=== PATIENT | female | born 1955 | race Caucasian/White ===

== ENCOUNTER 2021-01-19 02:51 | Outpatient (CLI) | payer BC, SELFPAY ==
[2021-01-19 11:21] LABS: Source Nasal/Nares
[2021-01-19 19:29] LABS: COVID-19 PCR Negative (Negative)
== END 2021-01-19 02:52 | disposition home or self-care (01) ==
LOC: LBO 02:51
PROVIDERS: Visit Provider Ophthalmology
DX: Z20.822 Contact with and (suspected) exposure to COVID-19 (principal); Z01.818 Encounter for other preprocedural examination
CPT/HCPCS: 87635

== ENCOUNTER 2021-01-21 07:02 | Day surgery (SDC) | payer BC, SELFPAY ==
--- NOTE | 2021-01-21 06:59 | W.ANESPRE ---
General Info Date of Service Date Performed: 01/21/21 Height: 5 ft 1 in Weight: 74.843 kg Body Mass Index (BMI): 31.1 Surgical Procedure: Operation Date: 01/21/21 08:40 Proposed Procedures Side Surgeon p Cataract Extraction with IOL Implant Bijan Alexandre MD Meds Allergies and Home Medications Allergies Allergy/AdvReac Type Severity Reaction Status Date / Time No Known Allergies Allergy Verified 01/21/21 07:18 Home Medication Medication Instructions Recorded atorvastatin 20 mg PO DAILY 01/19/21 calcium carbonate mg PO DAILY 01/19/21 duloxetine 60 mg PO DAILY 01/19/21 ergocalciferol (vitamin D2) 1,250 mcg PO DIRECTED 01/19/21 ferrous gluconate mg PO DAILY 01/19/21 omega-3 fatty acids [Fish Oil] 1 cap PO DAILY 01/19/21 Current Visit Medications: Current Medications Generic Name Dose Route Start Last Admin Trade Name Freq PRN Reason Stop Dose Admin Acetaminophen 1,000 mg 01/21/21 06:00 Acetaminophen 500 Mg Tab PO Q4H PRN PRN Miscellaneous Medication 0 ml 01/21/21 06:00 Prednisolone 1%, Moxifloxacin 0.5%, Nepafenac 0.1% 5ml Btl OS DIRECTED [facility] Miscellaneous Medication 0 ml 01/21/21 06:00 Tropicam./Phenyleph. 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 cataract of left eye H25.042 Nuclear sclerotic cataract of left eye H25.12 Medical History Medical History Bilateral cataracts Depression with anxiety GERD (gastroesophageal reflux disease) Hypercholesteremia Tobacco Smoking/Tobacco Use Status: Former Tobacco Use Alcohol Alcohol Intake: current Alcohol intake frequency: a few times a week Alcohol type: wine Substance Use Substance use: Never Substance use type: does not use Vital Signs and Lab Results Lab Results Blood Type / Crossmatch: No Data to Display Complete Blood Count: No Data to Display Complete Metabolic Panel: No Data to Display Liver Function Panel: No Data to Display Coagulation Panel: No Data to Display Cardiac Panel: No Data to Display Arterial Blood Gas: No Data to Display Venous Blood Gas: No Data to Display Pancreas Panel: No Data to Display Thyroid Panel: No Data to Display Infectious Disease: Coronavirus (COVID-19)(PCR) Negative (Negative) 01/19/21 10:13 01/19/21 Coronavirus 2019 Source Nasal/Nares 01/19/21 10:13 01/19/21 Blood Cultures: No Data to Display Toxicology Panel: No Data to Display Anesthesia Assessment and Plan Anesthesia History Personal History: No History of Anesthesia Complications Family History: No Family History of Anesthesia Complications Exercise Tolerance Exercise Tolerance: Metabolic Equivalents>4 Pertinent Negatives Pertinent Negatives: No Symptoms of GERD, No Major Cardiovascular Symptoms or Complaints, No Major Pulmonary Symptoms or Complaints and No History of CVA/TIA Cardiac & Pulmonary Exam Cardiac Exam: Normal S1/S2 Heart Sounds Pulmonary Exam: Clear Bilateral Breath Sounds Implantable Cardiac Device Does patient have a Pacemaker or an ICD?: No Airway Exam Known Difficult Airway: No Mallampati Class: 2 Mouth Opening: Normal (> 3cm) Thyromental Distance: Greater than 3 cm Neck Range of Motion: Full ROM Neck Circumference: Normal Teeth Condition: Normal Dentition ASA Classification ASA Score: ASA 2 Emergency Case?: No NPO Status NPO Status: NPO Clears >2 hours, Solids >8 hours Anesthesia Plan Resuscitation Status: Full Code Anesthesia Technique: MAC Anesthesia Airway Planned: Natural Airway Monitors Used: Standard Monitors
[2021-01-21 07:26] VITALS: BP 147/84; PULSE 77; RESP 16; TEMP 36.4; O2SAT 98
[2021-01-21 07:31] VITALS: BMI 31.1
[2021-01-21] MEDS: Tropicam./Phenyleph. (1/2.5%) 5 ML BTL OS ×3 (07:33→07:43)
[2021-01-21] MEDS: Tetracaine 0.5% 4 ML BTL OS (08:20)
[2021-01-21] MEDS: Balanced Salt Soln.-PLUS 500 ML BAG (08:22)
[2021-01-21] MEDS: Duovisc Viscoelastic System EACH 1 EACH (08:23)
[2021-01-21] MEDS: Lidocaine 1% Pres-Free 5 ML VIAL (08:23)
[2021-01-21] MEDS: Lidocaine 2% Jelly 6 ML SYR (08:24)
[2021-01-21] MEDS: Povidone-Iodine Ophth 30 ML BTL (08:25)
--- NOTE | 2021-01-21 08:44 | W.PM.DSUDISC ---
Discharge Plan Disposition Patient Disposition: HOME Condition: Good Discharge Details Attending Provider: Bijan Alexandre Primary Care Provider: No,Local Home Meds and New Rx's Prescriptions: No Action atorvastatin 20 mg tablet 20 mg PO DAILY RF: 0 calcium carbonate 500 mg calcium (1,250 mg) Capsule 500 mg PO DAILY RF: 0 ergocalciferol (vitamin D2) 1,250 mcg (50,000 unit) capsule 1,250 mcg PO DIRECTED RF: 0 duloxetine 60 mg capsule,delayed release(DR/EC) 60 mg PO DAILY RF: 0 ferrous gluconate 324 mg (38 mg iron) Tablet 324 mg PO DAILY RF: 0 Fish Oil Capsule 1 cap PO DAILY RF: 0 Discharge Instructions Stand Alone Forms: Post-op Topical Cataract, Roe James (DSU) Discharge Orders Discharge Orders: Discharge Order (Routine); Ordered 01/21/21 Ordered By: Bijan Alexandre DS: Diagnosis Discharge Diagnosis (1) Posterior subcapsular age-related cataract of left eye: Status: Resolved (2) Nuclear sclerotic cataract of left eye: Status: Resolved
[2021-01-21 08:45] VITALS: BP 124/81; PULSE 80; RESP 16; TEMP 36.6; O2SAT 95
--- NOTE | 2021-01-21 08:45 | ROE_ITS ---
Date of service: 01/21/21 Time of Service: 08:45 Operative Note Operative Note DATE OF PROCEDURE: 01/21/21 PRE-OP DIAGNOSIS: Nuclear/posterior subcapsular cataract, left eye POST-OP DIAGNOSIS: same PROCEDURE: Cataract extraction using phacoemulsification with intraocular lens implant, left eye SURGEON: Bijan Alexandre ANESTHESIA TYPE: Local By Surgeon and MAC Refer to Anesthesia Record PATHOLOGY: none sent COMPLICATIONS: None Patient was transported to: same day Patient's condition: stable Implants: Tobi and Tobi / [employer] Tecnis [id number] Indications: Progressive decreased vision due to cataract, left eye Procedure Description: CATARACT SURGERY OPERATIVE REPORT PREOPERATIVE DIAGNOSIS: 1. Nuclear/posterior subcapsular cataract, left eye POSTOPERATIVE DIAGNOSIS: Same OPERATION: 1. Cataract extraction using phacoemulsification with posterior chamber intraocular lens implant, left eye. IOL: IOL Insole Department Worker/Model: Tobi & Tobi / ZEB Tecnis [id number] IOL Power: + 22.5 diopters IOL Serial Number: [id number] Optic Diameter: 6.0 mm Haptic/Overall Diameter: 13.0 mm PHACO INFO: Rey [employer] Vision System with OZil and Active Fluidics Cumulative Dispersed Energy (CDE): 12.21 seconds SURGEON: Bijan Alexandre MD, MEGHAN ANESTHESIA: Monitored A [facility] (MAC), with local sub-tenon's anesthetic infiltration COMPLICATIONS: None SPECIMENS: None INDICATIONS FOR PROCEDURE: The patient is a 65-year-old lady with history of diminished visual acuity in her left eye secondary to the development of nuclear and posterior subcapsular cataract. She is significantly symptomatic that she desires cataract surgery and attempt to improve and maximize her vision. The option of cataract surgery was offered to the patient and she wished to proceed. PROCEDURE: The correct surgical eye was identified and marked as the left eye and the pupil was dilated in the preoperative area using mydriatics and cycloplegics. The dilated pupil size was 6.5 mm. Oral sedation was administered in the form of an Imprimis MKO Melt (midazolam 3mg/ketamine 25mg/ondansetron 2mg). The patient was brought to the operating room where cardiopulmonary monitoring was instituted and surgical time-out was performed, confirming the correct operative eye and IOL power. Topical anesthesia was administered and ophthalmic povidone-iodine 5% was instilled into the conjunctival fornices. Lidocaine gel was applied to the cornea and the zakiya-ocular area was prepped with Betadine 10% solution and draped in the usual sterile fashion for intraocular surgery, including an aperture drape. A Tegaderm transparent film dressing was cut in half and used to cover the lashes and lid margins. Care was taken to sequester the lashes and lid margins under the Tegaderm dressing. A lid speculum was placed between the lids of the operative eye and the Jonah-Anne Marie operating microscope was maneuvered into position. Joanna scissors were then used to make a conjunctival buttonhole approximately 6mm posterior to the limbus in the inferonasal quadrant. Blunt dissection was carried out to expose bare sclera, and a blunt-tipped sub-tenon?s anesthesia cannula was introduced and passed posteriorly along the globe where non- preserved plain lidocaine was injected into posterior sub-Tenon?s space. A sideport knife was used to make a paracentesis port superiorly/superiortemporally. Intraocular phenylephrine/lidocaine was injected int the anterior chamber.. The anterior chamber was filled with viscoelastic. A 2.4mm keratome knife was used to create a half-thickness groove at the limbus and then to construct a three-plane near-clear corneal tunnel extending 2.0mm into clear cornea at the 3:00 position. A flap was raised on the anterior capsule and capsulorhexis forceps were used to complete a continuous curvilinear capsulorhexis of 5.0 mm. Balanced salt solution was then used to perform cortical cleaving hydrodissection and nuclear hydrodelineation until the lens could be freely rotated within the capsular bag. The lens nucleus was then disassembled and removed within the capsular bag and iris plane using phacoemulsification. Residual cortical material was removed using the 45-degree angled silicone I/A tip with 0.3mm port. The posterior capsule was carefully polished to remove as much residual lens epithelial cells as safely possible. The capsular bag was then inflated and the anterior chamber deepened with viscoelastic. The lens implant described above was inserted into the capsular bag using the ZEB Gilbert Injector. A Kuglen hook was used to dial the IOL into position. Residual viscoelastic was then removed first from posterior to the IOL, then from the anterior chamber using the I/A handpiece. The lens implant was noted to center nicely within the capsular bag. The incisions were stromally hydrated, and the anterior chamber was reformed using BSS. Then 0.5cc of moxifloxacin 1.0mg/ml were injected into the capsular bag and anterior chamber. The incisions were checked with a Weck spear and found to be secure. Several drops of ophthalmic povidone-iodine 5% were then applied to the eye followed by two drops of Imprimis combination prednisolone/moxifloxacin/nepafenac solution. The drapes were removed and a clear plastic protective eye shield was placed over the eye. The patient was then returned to Same Day Surgery in stable condition.
[2021-01-21 09:15] VITALS: BP 129/97; PULSE 84; RESP 16; TEMP 36.4; O2SAT 95
--- NOTE | 2021-01-21 09:21 | W.ANESPOSTOP ---
Postoperative Evaluation Date, Time and Location Date Performed: 01/21/21 Time Performed: 08:50 Patient Location: Day Surgery Unit Vital Signs Most Recent Imported Vital Signs: Most Recent Vital Signs Temp Pulse Resp BP Pulse Ox 36.6 C 80 16 124/81 95 01/21/21 08:45 01/21/21 08:45 01/21/21 08:45 01/21/21 08:45 01/21/21 08:45 Pain Score Most Recent Pain Score: Most Recent Pain Score Pain Level 0 01/21/21 08:45 Assessment Mental Status: Awake (Alert & Oriented to Patient Baseline) Airway and Respiratory Function: Patent airway with normal (patient baseline) respiratory exam Cardiovascular Function: Hemodynamically Stable Hydration Status: Adequately Hydrated Nausea & Vomiting: No Nausea or Vomiting Pain: Pt. Denies Any Pain Peripheral Nerve Block: Other (Local by Dr. Alexadnre)
== END 2021-01-21 09:20 | disposition home or self-care (01) ==
PROVIDERS: Visit Provider Ophthalmology
PROC: (CPT 66984; principal; 2021-01-21 08:30)
DX: H25.042 Posterior subcapsular polar age-related cataract, left eye (principal); K21.9 Gastro-esophageal reflux disease without esophagitis; E78.00 Pure hypercholesterolemia, unspecified; F41.8 Other specified anxiety disorders
CPT/HCPCS: 66984; V2632

== ENCOUNTER 2021-01-26 02:49 | Outpatient (CLI) | payer BC, SELFPAY ==
[2021-01-26 10:51] LABS: Source Nasal/Nares
[2021-01-26 14:12] LABS: COVID-19 PCR Negative (Negative)
== END 2021-01-26 02:50 | disposition home or self-care (01) ==
LOC: LBO 02:49
PROVIDERS: Visit Provider Ophthalmology
DX: Z20.822 Contact with and (suspected) exposure to COVID-19 (principal); Z01.818 Encounter for other preprocedural examination
CPT/HCPCS: 87635

== ENCOUNTER 2021-01-28 06:59 | Day surgery (SDC) | payer BC, SELFPAY ==
--- NOTE | 2021-01-27 13:09 | W.ANESPRE ---
General Info Date of Service Date Performed: 01/28/21 Height: 5 ft 1 in Weight: 81.2 kg Body Mass Index (BMI): 33.8 Surgical Procedure: Operation Date: 01/28/21 08:40 Proposed Procedures Side Surgeon p Cataract Extraction with IOL Implant Bijan Alexandre MD Meds Allergies and Home Medications Allergies Allergy/AdvReac Type Severity Reaction Status Date / Time No Known Allergies Allergy Verified 01/28/21 07:17 Home Medication Medication Instructions Recorded atorvastatin 20 mg PO DAILY 01/19/21 calcium carbonate 500 mg PO DAILY 01/19/21 duloxetine 60 mg PO DAILY 01/19/21 ergocalciferol (vitamin D2) 1,250 mcg PO DIRECTED 01/19/21 ferrous gluconate 324 mg PO DAILY 01/19/21 omega-3 fatty acids [Fish Oil] 1 cap PO DAILY 01/19/21 Current Visit Medications: Current Medications Generic Name Dose Route Start Last Admin Trade Name Freq PRN Reason Stop Dose Admin Acetaminophen 1,000 mg 01/28/21 06:00 Acetaminophen 500 Mg Tab PO Q4H PRN PRN Miscellaneous Medication 0 ml 01/28/21 06:00 Prednisolone 1%, Moxifloxacin 0.5%, Nepafenac 0.1% 5ml Btl OS DIRECTED TEJAL Miscellaneous Medication 0 ml 01/28/21 06:00 Tropicam./Phenyleph. (1/2.5%) 5 Ml Btl OS DIRECTED TEJAL Tetracaine HCl 0 ml 01/28/21 06:00 Tetracaine 0.5% 4 Ml Btl OS DIRECTED TEJAL PFSH Active Problems Active Problems: Problem Status Onset Code Nuclear sclerotic cataract of right eye H25.11 Posterior subcapsular age-related cataract of left eye H25.042 Nuclear sclerotic cataract of left eye H25.12 Medical History Active Problem List (Updated 01/28/21 @ 07:17 by Ángel Jauregui) Nuclear sclerotic cataract of right eye (Acute) Medical History (Updated 01/28/21 @ 07:17 by Ángel Jauregui) Bilateral cataracts Cataract Depression with anxiety GERD (gastroesophageal reflux disease) Hypercholesteremia Tobacco Smoking/Tobacco Use Status: Former Tobacco Use Alcohol Alcohol Intake: current Alcohol intake frequency: a few times a week Alcohol type: wine Substance Use Substance use: Never Substance use type: does not use Vital Signs and Lab Results Vital Signs Most Recent Vital Signs in EMR: Temp Pulse Resp BP Pulse Ox 36.7 C 73 16 139/92 H 96 01/28/21 07:20 01/28/21 07:20 01/28/21 07:20 01/28/21 07:20 01/28/21 07:20 Lab Results Blood Type / Crossmatch: No Data to Display Complete Blood Count: No Data to Display Complete Metabolic Panel: No Data to Display Liver Function Panel: No Data to Display Coagulation Panel: No Data to Display Cardiac Panel: No Data to Display Arterial Blood Gas: No Data to Display Venous Blood Gas: No Data to Display Pancreas Panel: No Data to Display Thyroid Panel: No Data to Display Infectious Disease: Coronavirus (COVID-19)(PCR) Negative (Negative) 01/26/21 08:41 01/26/21 Coronavirus 2019 Source Nasal/Nares 01/26/21 08:41 01/26/21 Blood Cultures: No Data to Display Toxicology Panel: No Data to Display Anesthesia Assessment and Plan Anesthesia History Personal History: No History of Anesthesia Complications Family History: No Family History of Anesthesia Complications Exercise Tolerance Exercise Tolerance: Metabolic Equivalents>4 Cardiac & Pulmonary Exam Cardiac Exam: Normal S1/S2 Heart Sounds Pulmonary Exam: Clear Bilateral Breath Sounds Implantable Cardiac Device Does patient have a Pacemaker or an ICD?: No Airway Exam Known Difficult Airway: No Mallampati Class: 2 Mouth Opening: Normal (> 3cm) Thyromental Distance: Greater than 3 cm Neck Range of Motion: Full ROM Neck Circumference: Normal Teeth Condition: Normal Dentition ASA Classification ASA Score: ASA 2 Emergency Case?: No NPO Status NPO Status: NPO Clears >2 hours, Solids >8 hours Anesthesia Plan Resuscitation Status: Full Code Anesthesia Technique: MAC Anesthesia Airway Planned: Natural Airway Monitors Used: Standard Monitors Preoperative Comments:: 65 yo female cataract surgery. Sig PMHx: GERD, Depression/anxiety, occ EtOH, former smoker. Previous MKO. denies health history change. does not want an MKO this time.
[2021-01-28 07:20] VITALS: BP 139/92; PULSE 73; RESP 16; TEMP 36.7; O2SAT 96
[2021-01-28] MEDS: Tropicam./Phenyleph. (1/2.5%) 5 ML BTL OS ×3 (07:28→07:38)
[2021-01-28 07:33] VITALS: BMI 33.8
[2021-01-28] MEDS: Tetracaine 0.5% 4 ML BTL OS (08:10)
[2021-01-28] MEDS: Balanced Salt Soln.-PLUS 500 ML BAG (08:12)
[2021-01-28] MEDS: Duovisc Viscoelastic System EACH 1 EACH (08:13)
[2021-01-28] MEDS: Povidone-Iodine Ophth 30 ML BTL (08:14)
[2021-01-28] MEDS: Trypan Blue 0.06% 0.5 ML SYR (08:14)
[2021-01-28] MEDS: Lidocaine 2% Jelly 6 ML SYR (08:14)
--- NOTE | 2021-01-28 08:30 | W.PM.DSUDISC ---
Discharge Plan Disposition Patient Disposition: HOME Condition: Good Discharge Details Attending Provider: Bijan Alexandre Primary Care Provider: No,Local Home Meds and New Rx's Prescriptions: No Action atorvastatin 20 mg tablet 20 mg PO DAILY RF: 0 calcium carbonate 500 mg calcium (1,250 mg) Capsule 500 mg PO DAILY RF: 0 ergocalciferol (vitamin D2) 1,250 mcg (50,000 unit) capsule 1,250 mcg PO DIRECTED RF: 0 duloxetine 60 mg capsule,delayed release(DR/EC) 60 mg PO DAILY RF: 0 ferrous gluconate 324 mg (38 mg iron) Tablet 324 mg PO DAILY RF: 0 Fish Oil Capsule 1 cap PO DAILY RF: 0 Discharge Instructions Stand Alone Forms: Post-op Topical Cataract, Roe James (DSU) Discharge Orders Discharge Orders: Discharge Order (Routine); Ordered 01/28/21 Ordered By: Bijan Alexandre DS: Diagnosis Discharge Diagnosis (1) Nuclear sclerotic cataract of right eye: Status: Resolved
--- NOTE | 2021-01-28 08:31 | W.PM.OP ---
Date of service: 01/28/21 Time of Service: 08:31 Operative Note Operative Note DATE OF PROCEDURE: 01/28/21 PRE-OP DIAGNOSIS: Nuclear cataract, right eye POST-OP DIAGNOSIS: same PROCEDURE: Cataract extraction using phacoemulsification with intraocular lens implant, right eye SURGEON: Bijan Alexandre ANESTHESIA TYPE: Local By Surgeon and MAC Refer to Anesthesia Record ESTIMATED BLOOD LOSS: 0 PATHOLOGY: none sent COMPLICATIONS: None Patient was transported to: same day Patient's condition: stable Implants: Tobi & Tobi/ZEB Tecnis [id number] Indications: Progressive visual loss due to cataract, right eye Procedure Description: CATARACT SURGERY OPERATIVE REPORT PREOPERATIVE DIAGNOSIS: 1. Nuclear cataract, right eye POSTOPERATIVE DIAGNOSIS: Same OPERATION: 1. Cataract extraction using phacoemulsification with posterior chamber intraocular lens implant, right eye. IOL: IOL Alkylation Operator/Model: Tobi & Tobi / ZEB Tecnis [id number] IOL Power: + 23.5 diopters IOL Serial Number: [id number] Optic Diameter: 6.0mm Haptic/Overall Diameter: 13.0mm PHACO INFO: [id number] Vision System with OZil and Active Fluidics Cumulative Dispersed Energy (CDE): 5.17 seconds SURGEON: Bijan Alexandre MD, MEGHAN ANESTHESIA: Monitored Anesthesia Care (MAC), with local sub-tenon's anesthetic infiltration COMPLICATIONS: None SPECIMENS: None INDICATIONS FOR PROCEDURE: The patient is a 65-year-old lady with history of diminished visual acuity in both eyes secondary to the development of cataract. She has already undergone cataract surgery in the left eye and is doing well postoperatively. She now presents for cataract surgery in the right eye. PROCEDURE: The correct surgical eye was identified and marked as the right eye and the pupil was dilated in the preoperative area using mydriatics and cycloplegics. The dilated pupil size was 7.0 mm. She elected to proceed without oral sedation.. The patient was brought to the operating room where cardiopulmonary monitoring was instituted and surgical time-out was performed, confirming the correct operative eye and IOL power. Topical anesthesia was administered and ophthalmic povidone-iodine 5% was instilled into the conjunctival fornices. Lidocaine gel was applied to the cornea and the zakiya-ocular area was prepped with Betadine 10% solution and draped in the usual sterile fashion for intraocular surgery, including an aperture drape. A Tegaderm transparent film dressing was cut in half and used to cover the lashes and lid margins. Care was taken to sequester the lashes and lid margins under the Tegaderm dressing. A lid speculum was placed between the lids of the operative eye and the Jonah-Anne Marie operating microscope was maneuvered into position. Joanna scissors were then used to make a conjunctival buttonhole approximately 6mm posterior to the limbus in the inferonasal quadrant. Blunt dissection was carried out to expose bare sclera, and a blunt-tipped sub-tenon?s anesthesia cannula was introduced and passed posteriorly along the globe where non-preserved plain lidocaine was injected into posterior sub-Tenon?s space. A sideport knife was used to make a paracentesis port inferotemporally. Air was injected into the anterior chamber, followed by VisionBlue, which was painted over the lens capsule. Intraocular phenylephrine/lidocaine was injected into the anterior chamber. The anterior chamber was filled with viscoelastic. A 2.4mm keratome knife was used to create a half-thickness groove at the limbus and then to construct a three-plane near-clear corneal tunnel extending 2.0mm into clear cornea superiortemporally. A flap was raised on the anterior capsule and capsulorhexis forceps were used to complete a continuous curvilinear capsulorhexis of 5.0 mm. Balanced salt solution was then used to perform cortical cleaving hydrodissection and nuclear hydrodelineation until the lens could be freely rotated within the capsular bag. The lens nucleus was then disassembled and removed within the capsular bag and iris plane using phacoemulsification. Residual cortical material was removed using the I/A handpiece. The posterior capsule was carefully polished to remove as much residual lens epithelial cells as safely possible. The capsular bag was then inflated and the anterior chamber deepened with viscoelastic. The lens implant described above was inserted into the capsular bag using the ZEB [place] [employer] Injector. A Kuglen hook was used to dial the IOL into position. Residual viscoelastic was then removed first from posterior to the IOL, then from the anterior chamber using the I/A handpiece. The lens implant was noted to center nicely within the capsular bag. The incisions were stromally hydrated, and the anterior chamber was reformed using BSS. Then 0.5cc of moxifloxacin 1.0mg/ml were injected into the capsular bag and anterior chamber. The incisions were checked with a Weck spear and found to be secure. Several drops of ophthalmic povidone-iodine 5% were then applied to the eye followed by two drops of Imprimis combination prednisolone/moxifloxacin/nepafenac solution. The drapes were removed and a clear plastic protective eye shield was placed over the eye. The patient was then returned to Same Day Surgery in stable condition.
[2021-01-28 08:38] VITALS: BP 137/78; PULSE 66; RESP 16; TEMP 36.1; O2SAT 98
--- NOTE | 2021-01-28 08:42 | W.ANESPOSTOP ---
Postoperative Evaluation Date, Time and Location Date Performed: 01/28/21 Time Performed: 08:35 Patient Location: Day Surgery Unit Vital Signs Most Recent Imported Vital Signs: Most Recent Vital Signs Temp Pulse Resp BP Pulse Ox 36.1 C L 66 16 137/78 98 01/28/21 08:38 01/28/21 08:38 01/28/21 08:38 01/28/21 08:38 01/28/21 08:38 Pain Score Most Recent Pain Score: Most Recent Pain Score Pain Level 0 01/28/21 08:38 Assessment Mental Status: Awake (Alert & Oriented to Patient Baseline) Airway and Respiratory Function: Patent airway with normal (patient baseline) respiratory exam Cardiovascular Function: Hemodynamically Stable Hydration Status: Adequately Hydrated Nausea & Vomiting: No Nausea or Vomiting Pain: Pt. Denies Any Pain Peripheral Nerve Block: Patient did not receive a nerve block
== END 2021-01-28 08:54 | disposition home or self-care (01) ==
PROVIDERS: Visit Provider Ophthalmology
PROC: (CPT 66984; principal; 2021-01-28 08:30)
DX: H25.11 Age-related nuclear cataract, right eye (principal); E78.00 Pure hypercholesterolemia, unspecified
CPT/HCPCS: 66984; V2632